=== PATIENT | male | born 1985 | race Caucasian/White ===

== ENCOUNTER 2023-02-19 02:28 | Emergency (ER) | payer BC ==
[~2023-02-19] VITALS: Ht 172 cm; Wt 68.1 kg
[2023-02-19 02:37] VITALS: BP 140/88
[2023-02-19] MEDS ORDERED: morphine INJ 10 MG/ML 1ML (SYR OR VIAL) IVP STA (02:43)
--- NOTE | 2023-02-19 02:43 | ED GU-Male ---
General Stated Complaint: KIDNEY PAIN Source: patient Exam Limitations: no limitations History of Present Illness Date Seen by Provider: Feb 19, 2023 Time Seen by Provider: 02:31 Initial Comments 37-year-old male with past medical history of kidney stones coming in feeling like he has a kidney stone. He has left flank pain that started just under 2 hours ago. The pain is sharp, intermittent, associated with nonbloody nonbilious vomiting. Denies any dysuria or hematuria. Also denies any fever, abdominal pain, chest pain, shortness of breath, diarrhea, rash, or any other concerns. Allergies and Home Medications Allergies Coded Allergies: No Known Drug Allergies (Unverified , 02/19/23) Patient Home Medication List Home Medication List Reviewed: Yes Ketorolac Tromethamine (Ketorolac Tromethamine) 10 Mg Tablet, 10 MG PO Q6H PRN for PAIN-MODERATE (5-7) Prescribed by: BRYCE ARRIETA on 02/19/23 0250 Ondansetron (Ondansetron Odt) 4 Mg Tab.rapdis, 4 MG SL Q6H PRN for NAUSE A/VOMITING Prescribed by: BRYCE ARRIETA on 02/19/23 0250 Oxycodone HCl (Oxycodone HCl) 5 Mg Tablet, 5 MG PO Q6H PRN for PAIN-MODERATE TO SEVERE Prescribed by: BRYCE ARRIETA on 02/19/23 0250 Tamsulosin HCl (Flomax) 0.4 Mg Cap, 0.4 MG PO DAILY Prescribed by: BRYCE ARRIETA on 02/19/23 0250 Review of Systems Review of Systems Constitutional: No fever EENTM: no symptoms reported Respiratory: no symptoms reported Cardiovascular: no symptoms reported Gastrointestinal: no symptoms reported Genitourinary: see HPI Musculoskeletal: no symptoms reported Skin: no symptoms reported Psychiatric/Neurological: No Symptoms Reported Endocrine: No Symptoms Reported Past Opfcitq-Tctcnr-Kxdyrl Hx Patient Social History Substance use?: No Past Medical History Surgery/Hospitalization HX: lithotripsy Surgeries: Yes Physical Exam Vital Signs Vital Signs - First Documented 02/19/23 02:37 Temp 35.5 Pulse 47 Resp 24 B/P (MAP) 140/88 (105) Pulse Ox 100 O2 Delivery Room Air Capillary Refill : Height, Weight, BMI Height: '" Weight: lbs. oz. kg; BMI Method: General Appearance: WD/WN, moderate distress HEENT: PERRL/EOMI, normal ENT inspection, pharynx normal Neck: non-tender, full range of motion, supple, normal inspection Cardiovascular: regular rate, rhythm, no edema, no murmur Respiratory: chest non-tender, lungs clear, normal breath sounds, no respiratory distress, no accessory muscle use Gastrointestinal: normal bowel sounds, non tender, soft; No distended, No guarding, No rebound Back: normal inspection, no vertebral tenderness; No CVA tenderness (R); CVA tenderness (L) Extremities: normal range of motion, non-tender, normal inspection, no pedal edema, no calf tenderness, normal capillary refill Neurologic/Psychiatric: no motor/sensory deficits, alert, normal mood/affect Skin: normal color, warm/dry Progress/Results/Core Measures Suspected Sepsis SIRS Temperature: Pulse: Respiratory Rate: Laboratory Tests 02/19/23 02:45: White Blood Count 8.7 Blood Pressure / Mean: Laboratory Tests 02/19/23 02:45: Creatinine 1.21, Platelet Count 271, Total Bilirubin 0.6 Results/Orders Lab Results Laboratory Tests Test 02/19/23 02:40 02/19/23 02:45 Range/Units Urine Color YELLOW Urine Clarity CLEAR Urine pH 6.0 5-9 Urine Specific [place] >=1.030 1.016-1.022 Urine Protein TRACE H NEGATIVE Urine Glucose (UA) NEGATIVE NEGATIVE Urine Ketones NEGATIVE NEGATIVE Urine Nitrite NEGATIVE NEGATIVE Urine Bilirubin NEGATIVE NEGATIVE Urine Urobilinogen 0.2 < = 1.0 MG/DL Urine Leukocyte Esterase NEGATIVE NEGATIVE Urine RBC (Auto) 2+ H NEGATIVE Urine RBC 5-10 H /HPF Urine WBC 0-2 /HPF Urine Squamous Epithelial Cells RARE /HPF Urine Renal Epithelial Cells 0-2 /HPF Urine Crystals PRESENT H /LPF Urine Calcium Oxalate Crystals FEW H /LPF Urine Bacteria NEGATIVE /HPF Urine Casts PRESENT /LPF Urine Hyaline Casts 0-2 H /LPF Urine Mucus LARGE H /LPF Urine Culture Indicated NO White Blood Count 8.7 4.3-11.0 10^3/uL Red Blood Count 5.30 4.30-5.52 10^6/uL Hemoglobin 15.9 13.3-17.7 g/dL Hematocrit 45 40-54 % Mean Corpuscular Volume 85 80-99 fL Mean Corpuscular Hemoglobin 30 25-34 pg Mean Corpuscular Hemoglobin Concent 35 32-36 g/dL Red Cell Distribution Width 12.5 10.0-14.5 % Platelet Count 271 130-400 10^3/uL Mean Platelet Volume 9.0 9.0-12.2 fL Immature Granulocyte % (Auto) 0 % Neutrophils (%) (Auto) 40 L 42-75 % Lymphocytes (%) (Auto) 50 H 12-44 % Monocytes (%) (Auto) 7 0-12 % Eosinophils (%) (Auto) 2 0-10 % Basophils (%) (Auto) 0 0-10 % Neutrophils # (Auto) 3.5 1.8-7.8 10^3/uL Lymphocytes # (Auto) 4.4 H 1.0-4.0 10^3/uL Monocytes # (Auto) 0.6 0.0-1.0 10^3/uL Eosinophils # (Auto) 0.1 0.0-0.3 10^3/uL Basophils # (Auto) 0.0 0.0-0.1 10^3/uL Immature Granulocyte # (Auto) 0.0 0.0-0.1 10^3/uL Sodium Level 140 135-145 MMOL/L Potassium Level 3.9 3.6-5.0 MMOL/L Chloride Level 102 98-107 MMOL/L Carbon Dioxide Level 26 21-32 MMOL/L Anion Gap 12 5-14 MMOL/L Blood Urea Nitrogen 23 H 7-18 MG/DL Creatinine 1.21 0.60-1.30 MG/DL Estimat Glomerular Filtration Rate 80 BUN/Creatinine Ratio 19 Glucose Level 129 H 70-105 MG/DL Calcium Level 10.2 H 8.5-10.1 MG/DL Corrected Calcium 9.8 8.5-10.1 MG/DL Total Bilirubin 0.6 0.1-1.0 MG/DL Aspartate Amino Transf (AST/SGOT) 41 H 5-34 U/L Alanine Aminotransferase (ALT/SGPT) 37 0-55 U/L Alkaline Phosphatase 68 40-136 U/L Total Protein 6.9 6.4-8.2 GM/DL Albumin 4.5 3.2-4.5 GM/DL Lipase 78 8-78 U/L My Orders Orders - BRYCE ARRIETA MD Cbc With Automated Diff (02/19/23 02:41) Comprehensive Metabolic Panel (02/19/23 02:41) Lipase (02/19/23 02:41) Ua Culture If Indicated (02/19/23 02:41) Morphine Injection (Morphine Injection (02/19/23 02:43) Ketorolac Injection (Toradol Injection) (02/19/23 02:45) Ondansetron Injection (Zofran Injectio (02/19/23 02:45) Rx-Hydrocodone/Apap 5-325 Mg (Rx-Vicodin (02/19/23 03:30) Rx-Ondansetron Po (Rx-Zofran Po) (02/19/23 03:18) Medications Given in ED Current Medications Medications Dose Ordered Sig/Debbie Route Start Time Stop Time Status Last Admin Dose Admin Ketorolac Tromethamine 15 mg ONCE ONCE IVP 02/19/23 02:45 02/19/23 02:46 DC 02/19/23 02:49 15 MG Ondansetron HCl 4 mg ONCE ONCE IVP 02/19/23 02:45 02/19/23 02:46 DC 02/19/23 02:49 4 MG Vital Signs/I&O 02/19/23 02:37 Temp 35.5 Pulse 47 Resp 24 B/P (MAP) 140/88 (105) Pulse Ox 100 O2 Delivery Room Air Capillary Refill : Progress Note : Progress Note 37-year-old male with above history coming in due to left flank pain. ABCs were intact and vitals were stable on presentation. Physical exam with left flank tenderness and no abdominal tenderness. I did a [id number] ultrasound showing mild to moderate hydronephrosis on the left with likely obstructing kidney stone and normal-appearing right kidney. An IV was placed and basic labs were obtained including urinalysis. He was given morphine and Toradol for pain as well as Zofran for nausea. Given his clinical history of kidney stones with this feeling like it, we will forego CT imaging at this time, especially given the ultrasound is consistent with an obstructive kidney stone. His age and risk factors make an abdominal aneurysm that ruptured much less likely. No abdominal tenderness making diverticulitis unlikely on the left side. Urinalysis without evidence of infection, creatinine normal, white blood cell count normal, LFTs unremarkable. On reassessment, his pain was much improved. I will have him follow-up with urology as an outpatient. Prescription medications were sent for pain and nausea. Departure Impression Primary Impression: Ureterolithiasis Disposition: 01 HOME, SELF-CARE Condition: Stable Departure-Patient Inst. Decision time for Depature: 03:30 Patient Instructions: Kidney stones in adults Add. Discharge Instructions: You do have a kidney stone on the left side. Please follow-up with the urologist of your choosing. Unfortunately there are none in this hospital system, you can just google one in [facility], or any other location you would like to go to. I would call tomorrow morning and schedule the appointment as soon as possible. Sometimes kidney stones can take weeks to come out. Pain medications were sent to your pharmacy. Another medication called tamsulosin was sent to your pharmacy which theoretically is to help the stone pass through. If you have run out of the prescription medications, you can substitute for ibuprofen 600 mg every 6 hours and Tylenol 1000 mg every 6 hours. Scripts Oxycodone HCl (Oxycodone HCl) 5 Mg Tablet 5 MG PO Q6H PRN for PAIN-MODERATE TO SEVERE for 3 Days, #12 TAB Prov: BRYCE ARRIETA MD 02/19/23 Ondansetron (Ondansetron Odt) 4 Mg Tab.rapdis 4 MG SL Q6H PRN for NAUSEA/VOMITING for 5 Days, #20 TAB Prov: BRYCE ARRIETA MD 02/19/23 Ketorolac Tromethamine (Ketorolac Tromethamine) 10 Mg Tablet 10 MG PO Q6H PRN for PAIN-MODERATE (5-7) for 3 Days, #12 TAB Prov: BRYCE ARRIETA MD 02/19/23 Tamsulosin HCl (Flomax) 0.4 Mg Cap 0.4 MG PO DAILY for 30 Days, #30 CAP Prov: BRYCE ARRIETA MD 02/19/23 Work/School Note: Work Release Form Date Seen in the Emergency Department: Feb 19, 2023 Return to Work: Feb 21, 2023 Restrictions: No Restrictions BRYCE ARRIETA MD Feb 19, 2023 02:43
[2023-02-19] MEDS ORDERED: KETOROLAC 15 MG/ML VIAL IVP ONE (02:45)
[2023-02-19] MEDS: ONDANSETRON 4 MG/2 ML (SDV) Z0FRAN IVP ONE (02:49)
[2023-02-19] MEDS ORDERED: TMSL.4C PO (02:50)
[2023-02-19] MEDS ORDERED: KETO10TA PO (02:50)
[2023-02-19] MEDS ORDERED: OXYC5TAB PO ×2 (02:50→03:25)
[2023-02-19] MEDS ORDERED: ONDA4TAB11 SL (02:50)
[2023-02-19 02:53] LABS: BASOPHILS % (AUTO) 0 % (0-10); EOSINOPHILS # (AUTO) 0.1 10^3/uL (0.0-0.3); EOSINOPHILS % (AUTO) 2 % (0-10); HEMATOCRIT 45 % (40-54); HEMOGLOBIN 15.9 g/dL (13.3-17.7); LYMPHOCYTES # (AUTO) 4.4 10^3/uL (1.0-4.0); LYMPHOCYTES % (AUTO) 50 % (12-44); MEAN CORPUSCULAR HEMOGLOBIN 30 pg (25-34); MEAN CORPUSCULAR HGB CONC 35 g/dL (32-36); MEAN CORPUSCULAR VOLUME 85 fL (80-99); MONOCYTES # (AUTO) 0.6 10^3/uL (0.0-1.0); MONOCYTES % (AUTO) 7 % (0-12); NEUTROPHILS # (AUTO) 3.5 10^3/uL (1.8-7.8); NEUTROPHILS % (AUTO) 40 % (42-75); PLATELET COUNT 271 10^3/uL (130-400); WHITE BLOOD COUNT 8.7 10^3/uL (4.3-11.0)
[2023-02-19 02:55] LABS: BILIRUBIN,URINE NEGATIVE (NEGATIVE); CLARITY,URINE CLEAR; COLOR,URINE YELLOW; GLUCOSE, URINE (UA) NEGATIVE (NEGATIVE); KETONES,URINE NEGATIVE (NEGATIVE); LEUKOCYTE ESTERASE ,URINE NEGATIVE (NEGATIVE); NITRITE,URINE NEGATIVE (NEGATIVE); PROTEIN,URINE TRACE (NEGATIVE)
[2023-02-19 03:08] LABS: BACTERIA,URINE NEGATIVE /HPF; CALCIUM OXALATE CRYSTALS,UR FEW /LPF; RENAL EPITHELIAL CELLS,URINE 0-2 /HPF; SQUAMOUS EPITHELIAL CELL,UR RARE /HPF; WBC,URINE 0-2 /HPF
[2023-02-19 03:09] LABS: HYALINE CASTS, URINE 0-2 /LPF
[2023-02-19] MEDS ORDERED: RX-ONDANSETRON 4 MG ODT (ZOFRAN) PPK #4 PO STA (03:18)
[2023-02-19 03:20] LABS: BILIRUBIN,TOTAL 0.6 MG/DL (0.1-1.0); CALCIUM 10.2 MG/DL (8.5-10.1); CREATININE SERUM 1.21 MG/DL (0.60-1.30); POTASSIUM 3.9 MMOL/L (3.6-5.0)
[2023-02-19 03:21] LABS: ALBUMIN 4.5 GM/DL (3.2-4.5); TOTAL PROTEIN 6.9 GM/DL (6.4-8.2)
== END 2023-02-19 03:30 | disposition home or self-care (01) ==
LOC: ER FS 02:32
DX: N13.2 Hydronephrosis with renal and ureteral calculous obstruction (principal); Z28.310 Unvaccinated for COVID-19
CPT/HCPCS: 36415; 80053; 81000; 83690; 85025

== ENCOUNTER 2023-05-12 07:27 | Emergency (ER) | payer BC ==
[~2023-05-12] VITALS: Ht 172 cm; Wt 69.0 kg
[~2023-05-12 07:27] MED LIST: KETO10TA PO; ONDA4TAB11 SL; OXYC5TAB PO; TMSL.4C PO
[2023-05-12] MEDS ORDERED: NS IV 1000 ML 1,000 ML IV STA (07:40)
[2023-05-12] MEDS ORDERED: KETOROLAC INJ 15 MG/ML VIAL IVP STA (07:40)
--- NOTE | 2023-05-12 07:47 | ED General ---
General Chief Complaint: - Reproductive Stated Complaint: TESTICULAR;SUPRAPUBIC PAIN Source of Information: Patient History of Present Illness Date Seen by Provider: May 12, 2023 Time Seen by Provider: 07:29 Initial Comments 37 yo male presenting by private vehicle to the emergency department this morning with complaints of left flank pain into his testicle. He states that he has testicle "keeps drawing up" on the left side over the last few weeks. He has had some discomfort over the last few weeks but then this morning he was having actual pain. He feels pain going down into his left testicle and some what into his lower back. Denies any pain with urination. He has not seen any blood with urination. Denies any nausea, vomiting, diarrhea. He reports that he has been sweating a lot especially this morning with the pain into his testicle. He felt like his temperature was all over the place. He has not taken anything for the pain or taken his temperature. He denies any surgeries on his pelvis. He has had previous kidney stones and seeing Dr. Hernandez out of [place]. He denies any primary care provider or following routinely with urologist or primary care. Timing/Duration: 1-3 Hours (more severe pain since early this am but discomfort for few weeks and feeling like his left testicle keeps drawing up on him) Severity: Severe Associated Systoms: No Chest Pain, No Cough; Diaphoresis; No Headaches, No Loss of Appetite, No Malaise, No Nausea/Vomiting, No Rash, No Seizure, No Shortness of Air, No Syncope, No Weakness Allergies and Home Medications Allergies Coded Allergies: No Known Drug Allergies (Unverified , 02/19/23) Patient Home Medication List Home Medication List Reviewed: Yes Ketorolac Tromethamine (Ketorolac Tromethamine) 10 Mg Tablet, 10 MG PO Q6H PRN for PAIN-MODERATE (5-7) Prescribed by: BRYCE ARRIETA on 02/19/23 0250 Ondansetron (Ondansetron Odt) 4 Mg Tab.rapdis, 4 MG SL Q6H PRN for NAUSEA/ VOMITING Prescribed by: BRYCE ARRIETA on 02/19/23 0250 Oxycodone HCl (Oxycodone HCl) 5 Mg Tablet, 5 MG PO Q6H PRN for PAIN-MODERATE TO SEVERE Prescribed by: BRYCE ARRIETA on 02/19/23 0325 Oxycodone HCl/Acetaminophen (Oxycodone-Acetaminophen 5-325) 5 Mg-325 Mg Tablet, 1 EACH PO Q6H PRN for PAIN SEVERE Prescribed by: SRINI YANG on 05/12/23 0837 Tamsulosin HCl (Flomax) 0.4 Mg Cap, 0.4 MG PO DAILY Prescribed by: BRYCE ARRIETA on 02/19/23 0250 Review of Systems Review of Systems Constitutional: see HPI EENTM: no symptoms reported Respiratory: no symptoms reported Cardiovascular: no symptoms reported Gastrointestinal: see HPI Genitourinary: see HPI Musculoskeletal: no symptoms reported Skin: No rash Psychiatric/Neurological: Anxiety Past Tekqnxk-Kacznj-Ftxajh Hx Past Medical History Surgery/Hospitalization HX: lithotripsy, Kidney stones, Epididymitis Surgeries: Yes Physical Exam Vital Signs Vital Signs - First Documented 05/12/23 07:50 Temp 36.0 Pulse 62 Resp 20 B/P (MAP) 147/69 (95) Pulse Ox 100 O2 Delivery Room Air Capillary Refill : Height, Weight, BMI Height: '" Weight: lbs. oz. kg; 23.00 BMI Method: General Appearance: Anxious, Mild Distress (having a hard time sitting still and keeps grabbing at his left testicle) HEENT: PERRL/EOMI Respiratory: Chest Non Tender, Lungs Clear, Normal Breath Sounds Cardiovascular: Regular Rate, Rhythm, Normal Peripheral Pulses Gastrointestinal: Normal Bowel Sounds, No Pulsatile Mass, Soft, Tenderness (LLQ into the groin tender with palpation) Back: No CVA Tenderness Extremity: Normal Capillary Refill, Normal Inspection, No Pedal Edema Neurologic/Psychiatric: Alert, Oriented x3, manager laundry II-XII Norm as Tested Skin: Normal Color, Diaphoresis Progress/Results/Core Measures Suspected Sepsis SIRS Temperature: Pulse: Respiratory Rate: Laboratory Tests 05/12/23 07:45: White Blood Count 7.4 Blood Pressure / Mean: Laboratory Tests 05/12/23 07:45: Creatinine 1.34H, Platelet Count 293, Total Bilirubin 1.2H Results/Orders Lab Results Laboratory Tests Test 05/12/23 07:35 05/12/23 07:45 Range/Units Urine Color DARK YELLOW Urine Clarity SL CLOUDY Urine pH 6.0 5-9 Urine Specific [place] >=1.030 1.016-1.022 Urine Protein 2+ H NEGATIVE Urine Glucose (UA) NEGATIVE NEGATIVE Urine Ketones 1+ H NEGATIVE Urine Nitrite NEGATIVE NEGATIVE Urine Bilirubin 2+ H NEGATIVE Urine Urobilinogen 0.2 < = 1.0 MG/DL Urine Leukocyte Esterase TRACE H NEGATIVE Urine RBC (Auto) 3+ H NEGATIVE Urine RBC 50-100 H /HPF Urine WBC 5-10 H /HPF Urine Squamous Epithelial Cells RARE /HPF Urine Crystals NONE /LPF Urine Bacteria FEW H /HPF Urine Casts NONE /LPF Urine Mucus LARGE H /LPF Urine Culture Indicated YES White Blood Count 7.4 4.3-11.0 10^3/uL Red Blood Count 5.41 4.30-5.52 10^6/uL Hemoglobin 15.8 13.3-17.7 g/dL Hematocrit 45 40-54 % Mean Corpuscular Volume 84 80-99 fL Mean Corpuscular Hemoglobin 29 25-34 pg Mean Corpuscular Hemoglobin Concent 35 32-36 g/dL Red Cell Distribution Width 12.5 10.0-14.5 % Platelet Count 293 130-400 10^3/uL Mean Platelet Volume 8.9 L 9.0-12.2 fL Immature Granulocyte % (Auto) 0 % Neutrophils (%) (Auto) 58 42-75 % Lymphocytes (%) (Auto) 35 12-44 % Monocytes (%) (Auto) 6 0-12 % Eosinophils (%) (Auto) 1 0-10 % Basophils (%) (Auto) 0 0-10 % Neutrophils # (Auto) 4.3 1.8-7.8 10^3/uL Lymphocytes # (Auto) 2.6 1.0-4.0 10^3/uL Monocytes # (Auto) 0.4 0.0-1.0 10^3/uL Eosinophils # (Auto) 0.1 0.0-0.3 10^3/uL Basophils # (Auto) 0.0 0.0-0.1 10^3/uL Immature Granulocyte # (Auto) 0.0 0.0-0.1 10^3/uL Sodium Level 139 135-145 MMOL/L Potassium Level 4.0 3.6-5.0 MMOL/L Chloride Level 102 98-107 MMOL/L Carbon Dioxide Level 22 21-32 MMOL/L Anion Gap 15 H 5-14 MMOL/L Blood Urea Nitrogen 17 7-18 MG/DL Creatinine 1.34 H 0.60-1.30 MG/DL Estimat Glomerular Filtration Rate 70 BUN/Creatinine Ratio 13 Glucose Level 172 H 70-105 MG/DL Calcium Level 9.6 8.5-10.1 MG/DL Corrected Calcium 9.2 8.5-10.1 MG/DL Total Bilirubin 1.2 H 0.1-1.0 MG/DL Aspartate Amino Transf (AST/SGOT) 15 5-34 U/L Alanine Aminotransferase (ALT/SGPT) 16 0-55 U/L Alkaline Phosphatase 83 40-136 U/L Total Protein 7.0 6.4-8.2 GM/DL Albumin 4.5 3.2-4.5 GM/DL My Orders Orders - SRINI YANG MD Comprehensive Metabolic Panel (05/12/23 07:32) Ua Culture If Indicated (05/12/23 07:32) Ed Iv/Invasive Line Start (05/12/23 07:32) Cbc With Automated Diff (05/12/23 07:32) Ketorolac Injection (Ketorolac Injection (05/12/23 07:40) Ns Iv 1000 Ml (Ns Iv 1000 Ml) (05/12/23 07:40) Ct Abdomen/Pelvis Wo (05/12/23 07:40) Urine Culture (05/12/23 07:35) Vital Signs/I&O 05/12/23 05/12/23 07:50 08:49 Temp 36.0 36.0 Pulse 62 62 Resp 20 20 B/P (MAP) 147/69 (95) 132/62 Pulse Ox 100 100 O2 Delivery Room Air Room Air Capillary Refill : Progress Note #1: Progress Note Differential diagnosis includes kidney stone, renal colic, colitis, diverticulitis, UTI, pyelonephritis, epididymitis. Obtain urine to run urinalysis. Establish peripheral IV access and send for complete blood count, comprehensive metabolic profile. CT scan of the abdomen and pelvis without IV contrast to look at the left flank pain into his testicle to see if there is pathology that could be causing his symptoms. Administer normal saline 1 L IV fluid bolus for hydration, Toradol 15 mg IV for pain. Patient states that he has not taken anything at home for pain because he does not like to take medicine. He did drive himself here to the emergency department. Progress Note #2: Time: 08:05 Progress Note Complete blood count shows a normal white blood cell count of 7.4 and normal hemoglobin of 15.8. The urinalysis is concentrated to go along with some dehydration and specific gravity is greater than 1.030. He has 2+ proteinuria, 1+ ketonuria, 2+ bilirubin, trace leukocyte esterase, 3+ blood with 50-100 red blood cells and a few bacteria with large mucus. A reflex culture was sent. On my personal interpretation and review of the CT scan of the abdomen and pelvis without IV contrast looks like he has a large kidney stone in the right proximal ureter and a large kidney stone in the left distal ureter. There are some mild to moderate hydroureter bilaterally. There is an additional small kidney stone in the left kidney. 0818 comprehensive metabolic profile showed normal sodium 139, potassium 4. He had slight elevation of his BUN to 17 and creatinine to 1.34. His glucose was elevated to 172. Unknown when he had last ate or drink anything. Mild elevation of the bilirubin to 1.2. Progress Note #3: Progress Note Patient does report improvement in his pain after treatment here in the ED. When reviewing discharge information with the patient he is fasting as he states he has only had some water this morning and has not eaten since last night. I advised him that his glucose was elevated to 172 and should be closer to 100 for fasting value. This may be elevated due to stress and pain however he might also be starting to be diabetic. In addition to following up with the urologist for his kidney stones I encouraged him to establish with a primary care provider for additional testing and evaluation for general health and possible new onset diabetes. In the meantime stressed importance of drinking plenty of fluids and stay well-hydrated. We will prescribe a few oxycodone/acetaminophen 5/325 pills 1 every 6 hours as needed for severe pain. Patient denied needing anything for nausea. Discussed tamsulosin with him however since the stones were over 5 mm they likely would not help so this was not prescribed. Counseled to strain his urine to see when he might pass the stone. Check back with Dr. Hernandez for urology and given information for [facility] as well. Diagnostic Imaging Diagonstic Imaging: CT Plain Films/CT/US/NM/MRI: abdomen, pelvis Comments [facility]. [place], [place] NAME: ARPIT SHEIKH [facility] REC#: [id number] PT STATUS: REG ER : 1985 PHYSICIAN: SRINI YANG MD ADMIT DATE: 05/12/23/ER FS Draft Date of Exam:05/12/23 CT ABDOMEN/PELVIS WO PROCEDURE: CT abdomen and pelvis without contrast. TECHNIQUE: Multiple contiguous axial images were obtained through the abdomen and pelvis without the use of intravenous contrast. Auto Exposure Controls were utilized during the CT exam to meet ALARA standards for radiation dose reduction. INDICATION: Left flank pain radiating to the left testicle. COMPARISON: None FINDINGS: Lung bases are clear. There is pectus excavatum. The heart is normal in size. The liver demonstrates no focal lesions on this noncontrast exam. The spleen appears normal. The pancreas is unremarkable. The adrenal glands appear normal. The right kidney demonstrates no hydronephrosis or calculi. There is a calcification measuring about 5 mm in diameter near the proximal right ureter. This may be within the ureter, but there does not appear to be associated hydronephrosis. There is mild left hydroureteronephrosis without obstructing calculus at the left ureterovesicular junction measuring about 6 mm in size. There is an additional nonobstructing 2 mm calculus in the left kidney. Wall thickening of the urinary bladder is thought to be due to nondistention. The bowel loops are nondistended without obstruction. The appendix appears normal. No free fluid or free air is seen. The aorta is normal in caliber. The left testicle is somewhat elevated toward the inguinal canal. No acute osseous abnormality is seen. IMPRESSION: 1. Obstructing calculus at the left ureterovesicular junction measuring 6 mm in size and causing mild left hydroureteronephrosis. 2. No obstructing calculi in the left kidney and the proximal right ureter. 3. Mild elevation of the left testicle toward the inguinal canal. Dictated on workstation # [id number] Dict: 05/12/23812 Trans: 05/12/23824 [facility] [id number] Interpreted by: JOLLY VELÁSQUEZ MD Electronically signed by: Reviewed: Reviewed by Me Departure Impression Primary Impression: Calculus of distal left ureter Additional Impressions: Acute left flank pain Pain in left testicle Renal colic on left side Calculus of proximal right ureter Hyperglycemia Disposition: 01 HOME, SELF-CARE Condition: Improved Departure-Patient Inst. Decision time for Depature: 08:43 Referrals: NO,LOCAL PHYSICIAN (PCP) Primary Care Physician [facility] Patient Instructions: Flank Pain ED, Opioids for Short-Term Treatment of Pain ED, Kidney Stone, Adult ED, Kidney Stone Diet, How to Strain Your Urine, High Blood Sugar, Adult ED, Diabetes and diet Add. Discharge Instructions: You have an approximately 6 mm kidney stone in your ureter on the left side almost to your bladder. It looks like there might be a 5 to 6 mm kidney stone on the right side that is near your kidney. Strain your urine to see if you might pass any kidney stones when you urinate. Call Dr. Hernandez, or urologist of your choice, for follow-up as they likely will need to do lithotripsy or a procedure to help the stone pass. The phone number for Dr. Hernandez with the [facility] is [phone]. He does come to [place] to see patients occasionally. Your labs had also shown that your blood sugar was elevated to 172. Fasting blood sugar would be closer to 100. Try to watch your diet and limit your carbohydrate and sugar intake. You should call and get established with a primary care provider for additional work-up on the elevated sugar. At the very least you might be prediabetic or having some early type 2 diabetes and they would need to do some additional testing and help with management of this. You could try and get established with the [facility] by calling [phone] All discharge instructions reviewed with patient and/or family. Voiced understanding. Scripts Oxycodone HCl/Acetaminophen (Oxycodone-Acetaminophen 5-325) 5 Mg-325 Mg Tablet 1 EACH PO Q6H PRN for PAIN SEVERE MDD 6 for 3 Days, #12 TAB 0 Refills Prov: SRINI YANG MD 05/12/23 SRINI YANG MD May 12, 2023 07:47
[2023-05-12 07:51] LABS: BASOPHILS % (AUTO) 0 % (0-10); EOSINOPHILS # (AUTO) 0.1 10^3/uL (0.0-0.3); EOSINOPHILS % (AUTO) 1 % (0-10); HEMATOCRIT 45 % (40-54); HEMOGLOBIN 15.8 g/dL (13.3-17.7); LYMPHOCYTES # (AUTO) 2.6 10^3/uL (1.0-4.0); LYMPHOCYTES % (AUTO) 35 % (12-44); MEAN CORPUSCULAR HEMOGLOBIN 29 pg (25-34); MEAN CORPUSCULAR HGB CONC 35 g/dL (32-36); MEAN CORPUSCULAR VOLUME 84 fL (80-99); MEAN PLATELET VOLUME 8.9 fL (9.0-12.2); MONOCYTES # (AUTO) 0.4 10^3/uL (0.0-1.0); MONOCYTES % (AUTO) 6 % (0-12); NEUTROPHILS # (AUTO) 4.3 10^3/uL (1.8-7.8); NEUTROPHILS % (AUTO) 58 % (42-75); PLATELET COUNT 293 10^3/uL (130-400); WHITE BLOOD COUNT 7.4 10^3/uL (4.3-11.0)
[2023-05-12 07:54] LABS: CLARITY,URINE SL CLOUDY; GLUCOSE, URINE (UA) NEGATIVE (NEGATIVE); KETONES,URINE 1+ (NEGATIVE); LEUKOCYTE ESTERASE ,URINE TRACE (NEGATIVE); NITRITE,URINE NEGATIVE (NEGATIVE); PROTEIN,URINE 2+ (NEGATIVE)
[2023-05-12 08:08] LABS: BILIRUBIN,URINE 2+ (NEGATIVE); COLOR,URINE DARK YELLOW
[2023-05-12 08:11] LABS: RBC,URINE 50-100 /HPF
[2023-05-12 08:12] LABS: BACTERIA,URINE FEW /HPF; SQUAMOUS EPITHELIAL CELL,UR RARE /HPF
[2023-05-12 08:13] LABS: ALBUMIN 4.5 GM/DL (3.2-4.5); BILIRUBIN,TOTAL 1.2 MG/DL (0.1-1.0); CALCIUM 9.6 MG/DL (8.5-10.1); CREATININE SERUM 1.34 MG/DL (0.60-1.30)
--- NOTE | 2023-05-12 08:25 | Diagnostic Imaging Report ---
PROCEDURE: CT abdomen and pelvis without contrast. TECHNIQUE: Multiple contiguous axial images were obtained through the abdomen and pelvis without the use of intravenous contrast. Auto Exposure Controls were utilized during the CT exam to meet ALARA standards for radiation dose reduction. INDICATION: Left flank pain radiating to the left testicle. COMPARISON: None FINDINGS: Lung bases are clear. There is pectus excavatum. The heart is normal in size. The liver demonstrates no focal lesions on this noncontrast exam. The spleen appears normal. The pancreas is unremarkable. The adrenal glands appear normal. The right kidney demonstrates no hydronephrosis or calculi. There is a calcification measuring about 5 mm in diameter near the proximal right ureter. This may be within the ureter, but there does not appear to be associated hydronephrosis. There is mild left hydroureteronephrosis without obstructing calculus at the left ureterovesicular junction measuring about 6 mm in size. There is an additional nonobstructing 2 mm calculus in the left kidney. Wall thickening of the urinary bladder is thought to be due to nondistention. The bowel loops are nondistended without obstruction. The appendix appears normal. No free fluid or free air is seen. The aorta is normal in caliber. The left testicle is somewhat elevated toward the inguinal canal. No acute osseous abnormality is seen. IMPRESSION: 1. Obstructing calculus at the left ureterovesicular junction measuring 6 mm in size and causing mild left hydroureteronephrosis. 2. No obstructing calculi in the left kidney and the proximal right ureter. 3. Mild elevation of the left testicle toward the inguinal canal. Dictated by: Dictated on workstation # [id number]
[2023-05-12] MEDS ORDERED: OXYC1TAB11 PO (08:36)
[2023-05-12 08:49] VITALS: BP 132/62
== END 2023-05-12 08:50 | disposition home or self-care (01) ==
LOC: EDUNIT# 07:27 → ER FS 07:28
DX: N13.2 Hydronephrosis with renal and ureteral calculous obstruction (principal); R73.9 Hyperglycemia, unspecified; N50.812 Left testicular pain; Z98.890 Other specified postprocedural states
CPT/HCPCS: 36415; 74176; 80053; 81000; 85025; 87088

== ENCOUNTER → 2023-08-14 | Outpatient (CLI) | payer BC ==
[~2023-08-14] MED LIST changes: +OXYC1TAB11 PO
--- NOTE | 2023-08-14 17:26 | Diagnostic Imaging Report ---
INDICATION: Abdominal pain. A single view was obtained. FINDINGS: The left lung base is clear. The bowel gas pattern is nonspecific. There are no abnormal abdominal calcifications. The osseous structures are unremarkable. IMPRESSION: Nonspecific bowel gas pattern Dictated by: Dictated on workstation # [id number]
== END ==
LOC: RAD FS 10:27
PROVIDERS: ATTEND Urology
DX: R10.9 Unspecified abdominal pain (principal)
CPT/HCPCS: 74018